=== PATIENT | male | born 1950 | race Caucasian/White ===

== ENCOUNTER 2020-04-12 07:44 | Day surgery (SDC) | payer BC ==
[2020-04-08 17:39] VITALS: BMI 27.3
[2020-04-12 08:07] VITALS: TEMP 98.4
[2020-04-12] MEDS ORDERED: LIDOCAINE HCL/PF 2% SDV 5ML VIAL ONE (08:56)
[2020-04-12] MEDS ORDERED: PROPOFOL 20 ML ONE ×3 (08:57)
[2020-04-12 13:52] VITALS: BP 130/70; PULSE 65
--- NOTE | 2020-04-14 16:43 | PATH ---
Surgical Pathology Report Patient Name: KELSEY TORREZ [place]. Rec. #: [id number] /Age/Gender: 1950 (Age: 69) / M Account: [id number] Location: [facility] Taken: 04/12/2020 Received: 04/12/2020 Reported: 04/14/2020 Physicians: Raphael Cheung M.D. Specimen(s) Received A: HOT SNARE POLYPECTOMY HEPATIC FLEXURE B: BIOPSY POLYP PROXIMAL TRANSVERSE COLON C: BIOPSY POLYP SPLENIC FLEXURE Clinical History History of polyps Postoperative diagnosis: Colon polyps Final Diagnosis A. HEPATIC FLEXURE, POLYP, HOT SNARE POLYPECTOMY: TUBULAR ADENOMA. B. PROXIMAL TRANSVERSE, POLYP, BIOPSY: TUBULAR ADENOMA. C. SPLENIC FLEXURE, POLYP, BIOPSY: TUBULAR ADENOMA. Electronically Signed Brynn Márquez M.D. Gross Description A. Received in formalin, labeled "hot marrow polypectomy hepatic flexure" are 2 dennis, polypoid portions of soft tissue measuring 0.8 and 0.9 cm. in greatest dimension. The specimens are submitted in toto in one cassette. B. Received in formalin, labeled "biopsy polyp proximal transverse" is a dennis, irregular portion of soft tissue measuring 0.4 cm. in greatest dimension. The specimen is submitted in toto in one cassette. C. Received in formalin, labeled "biopsy polyp splenic flexure " is a dennis, irregular portion of soft tissue measuring 0.3 cm. in greatest dimension. The specimen is submitted in toto in one cassette. 04/13/2020 saudi04/13/2020
== END 2020-04-12 09:20 | disposition home or self-care (01) ==
LOC: FASU-ENDO 07:44
PROVIDERS: ATTEND Internal Medicine Gastroenterology
PROC: 0DBL8ZX Excision of Transverse Colon, Via Natural or Artificial Opening Endoscopic, Diagnostic (ICD-10-PCS; principal; 2020-04-12 09:20)
DX: Z86.010 Personal history of colon polyps (principal); D12.3 Benign neoplasm of transverse colon
CPT/HCPCS: 88305-TC